=== PATIENT | male | born 1985 | race Caucasian/White ===

== ENCOUNTER → 2018-08-18 | Outpatient (CLI) | payer OTHER ==
[2018-08-18 08:48] LABS: PLATELET COUNT, AUTOMATED 214 K/uL (150-450)
--- NOTE | 2018-08-18 11:41 | RADIOLOGY IMAGING REPORT ---
FACILITY: [facility] PATIENT NAME: Rigo Mccabe : 1985 MR: [id number] V: [id number] EXAM DATE: ORDERING PHYSICIAN: KINGS VILLARREAL TECHNOLOGIST: Location: [facility] [place] Patient: Rigo Mccabe : 1985 Visit/Account:[id number] Date of Sevice: 08/18/2018 Exam type: HIPS BILATERAL History: Bilateral hip and groin pain Comparison: None. Findings: An AP view the pelvis and one additional view of each hip were submitted demonstrating no significant arthritic change. There is no evidence of acute fracture-dislocation involving the hips and no evid ence of lytic or blastic bone lesions. The SI joints appear relatively symmetric. IMPRESSION: 1. No acute osteoarticular abnormality the hips are seen. Report Dictated By: Betzaida Bowie MD at 08/18/2018 11:33 AM Report E-Signed By: Betzaida Bowie MD at 08/18/2018 11:35 AM WSN:[email or web address]
== END ==
LOC: LAB 08:21
PROVIDERS: ATTEND Nurse Practitioner Family
DX: M25.559 Pain in unspecified hip (principal); J45.909 Unspecified asthma, uncomplicated; R10.9 Unspecified abdominal pain
CPT/HCPCS: 36415; 73522; 82040; 82247; 82306; 82310; 82374; 82435; 82565; 82947; 84075; 84132; 84155; 84295; 84403; 84443; 84450; 84460; 84520; 85025